=== PATIENT | female | born 1975 | race Caucasian/White ===

== ENCOUNTER → 2022-10-16 08:18 | Outpatient (CLI) | payer BC, SELFPAY ==
--- NOTE | 2022-10-16 08:39 | US_ITS ---
FINAL REPORT CLINICAL HISTORY: ELEVATED LFTS FINDINGS: Sonographic images of the right upper quadrant were obtained. The pancreas is partially obscured. The liver demonstrates localized areas of fatty infiltration. There are multiple echogenic foci consistent with gallstones. There is no evidence of biliary ductal dilatation.The common duct measures 2 mm. Limited images of the right kidney are unremarkable. IMPRESSION: Cholelithiasis. Focal fatty infiltration of the liver. Reviewed, Interpreted and Dictated by Tj Butt MD Transcribed by Kamille Phillips Authenticated and [facility]
== END ==
PROVIDERS: PCP Nurse Practitioner Family; Visit Provider Nurse Practitioner Family
DX: R74.8 Abnormal levels of other serum enzymes (principal)
CPT/HCPCS: 76705

== ENCOUNTER → 2022-10-23 10:55 | Outpatient (CLI) | payer BC, SELFPAY ==
--- NOTE | 2022-10-23 10:59 | MM_ITS ---
PROCEDURE INFORMATION: Exam: Bilateral Screening 3D Mammography Exam date and time: 10/23/2022 10:57 AM Age: 46 years old Clinical indication: Baseline. Half maternal aunt had breast cancer. TECHNIQUE: Imaging protocol: Bilateral Screening tomosynthesis and 2D mammography including computer-aided detection (CAD) when performed. COMPARISON: No relevant prior studies available.If prior mammograms are provided, I am happy to add an addendum. FINDINGS: MAMMOGRAPHY: Breast composition: There are scattered areas of fibroglandular density. Mass: None. Architectural distortion: None. Calcifications: No suspicious calcifications. Asymmetric density: None. Skin thickening: None. Axillary adenopathy: None. Implants: Subpectoral saline implants. IMPRESSION: No mammographic evidence of malignancy. Annual screening is recommended unless otherwise clinically indicated. ASSESSMENT: BI-RADS Category 1: Negative
== END ==
PROVIDERS: PCP Nurse Practitioner Family; Visit Provider Nurse Practitioner Family
DX: Z12.31 Encounter for screening mammogram for malignant neoplasm of breast (principal)
CPT/HCPCS: 77063; 77067

== ENCOUNTER 2024-02-06 10:59 | Outpatient (CLI) | payer BC, SELFPAY ==
--- NOTE | 2024-02-06 11:03 | MR_ITS ---
FINAL REPORT CLINICAL HISTORY: MIGRAINE AND DIZZINESS. 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 COMPARISON: None FINDINGS: Multiplanar MR imaging of the brain was performed without and with contrast. Scattered foci of increased T2 signal are seen in the cerebral white matter that have a nonspecific appearance but likely represent mild chronic ischemic/gliotic changes. There is no evidence of intracranial hemorrhage or mass. No abnormal ventricular dilatation is identified. There is no evidence of shift of the midline structures. No abnormal extra-axial fluid collection is seen. No area of abnormal restricted diffusion is identified. The posterior fossa and brainstem have an unremarkable appearance. No abnormal contrast enhancement is seen. Normal major vessel vascular flow voids are seen. IMPRESSION: Mild chronic ischemic/gliotic changes. No acute intracranial abnormality. Reviewed, Interpreted and Dictated by Demarcus Florez III, MD Transcribed by Marie Ching Authenticated and [facility]
[2024-02-06] MEDS: SODIUM CHLORIDE 0.9% 10ML SYR (RAD ONLY) 10 ML IV (11:45)
[2024-02-06] MEDS: GADOTERIDOL INJ 20ML SYRINGE 13 ML IV (11:45)
== END 2024-02-06 23:59 | disposition home or self-care (01) ==
LOC: RAD 11:00
PROVIDERS: PCP Nurse Practitioner Family; Visit Provider Nurse Practitioner Family
DX: G43.019 Migraine without aura, intractable, without status migrainosus (principal); R20.2 Paresthesia of skin; R42 Dizziness and giddiness
CPT/HCPCS: 70553; A9576

== ENCOUNTER → 2024-07-08 10:38 | Outpatient (CLI) | payer BC, SELFPAY | LOC: SL 10:38 | PROVIDERS: PCP Nurse Practitioner Family; Visit Provider Nurse Practitioner Family | DX: G47.33 Obstructive sleep apnea (adult) (pediatric) (principal); R06.83 Snoring; G47.10 Hypersomnia, unspecified; I10 Essential (primary) hypertension | CPT/HCPCS: G0399 ==